=== PATIENT | male | born 1985 | race Caucasian/White ===

== ENCOUNTER 2017-08-17 13:18 | Emergency (ER) | payer OTHER, BC ==
--- NOTE | 2017-08-17 15:19 | EDM.PDOC ---
ED HPI GENERAL MEDICAL PROBLEM - General Chief Complaint: Back Pain or Injury Stated Complaint: BACK PAIN Time Seen by Provider: 08/17/17 13:46 Source of Information: Reports: Patient, RN Notes Reviewed - History of Present Illness INITIAL COMMENTS - FREE TEXT/NARRATIVE: 31-year-old male comes in with mid back pain. He is a member of the local [employer]. 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 That time he's been having discomfort in the mid back where at least one of the probes went through his skin. When no swelling, drainage, erythema or anything of that nature locally. In comes and goes, worse with certain types of bending and motion. He does not recall having any significant back discomfort prior to that incident. He wonders if his current and continued back discomfort is related to the Taser incident. Middle Back Pain Score (Numeric/FACES): 3 - Related Data Allergies Allergy/AdvReac Type Severity Reaction Status Date / Time No Known Allergies Allergy Verified 08/17/17 13:48 Home Meds: Home Meds . [No Known Home Meds] 08/17/17 [History] Past Medical History - Past Health History Medical/Surgical History: Denies Medical/Surgical History Social & Family History - Tobacco Use Smoking Status *Q: Never Smoker - Caffeine Use Caffeine Use: Reports: Coffee, Energy Drinks, Soda - Recreational Drug Use Recreational Drug Use: No ED ROS GENERAL - Review of Systems Review Of Systems: See Below Constitutional: Denies: Fever, Chills HEENT: Reports: No Symptoms Respiratory: Denies: Shortness of Breath Cardiovascular: Denies: Chest Pain GI/Abdominal: Denies: Abdominal Pain, Nausea, Vomiting Musculoskeletal: Reports: Back Pain (Mid back, not constant, worse with certain types of motion and activity such as bending reaching, no radiation of pain down to either lower extremity) Skin: Reports: No Symptoms. Denies: Bruising, Erythema Neurological: Denies: Numbness, Tingling, Difficulty Walking, Weakness, Gait Disturbance ED EXAM, UPPER BACK/NECK PAIN - Physical Exam Exam: See Below General Appearance: Alert, No Apparent Distress Throat/Mouth Exam: Normal Inspection Head Exam: Atraumatic Neck Exam: Non-Tender, Full Range of Motion Cardiovascular/Respiratory: Regular Rate, Rhythm, Normal Breath Sounds Back Exam: Paraspinal Tenderness (Very mild soft tissue tenderness of the mid back, mid thoracic area, no swelling visible, no mass palpable, no skin lesions visible). No: Vertebral Tenderness Extremities: Normal Inspection, Normal Range of Motion, Other (No pain with straight leg raising either leg). No: Leg Pain Neurologic: No Motor/Sensory Deficits Skin Exam: Normal Color, Warm/Dry Course - Vital Signs Last Recorded V/S: Last Vital Signs Temp 97.1 F 08/17/17 13:43 Pulse 78 08/17/17 13:43 Resp 20 08/17/17 13:43 BP 133/70 08/17/17 13:43 Pulse Ox 97 08/17/17 13:43 - Orders/Labs/Meds Orders: Active Orders 24 hr Category Date Time Status Thoracic Spine 2V [CR] Stat Exams 08/17/17 14:23 Taken - Re-Assessments/Exams Free Text/Narrative Re-Assessment/Exam: 08/17/17 15:50 X-rays of the thoracic spine do not show apparent abnormality Departure - Departure Time of Disposition: 15:16 Disposition: Home, Self-Care 01 Condition: Fair Clinical Impression: Back pain Qualifiers: Back pain location: thoracic back pain Chronicity: acute Back pain laterality: midline Qualified Code(s): M54.6 - Pain in thoracic spine - Discharge Information Instructions: Back Pain, Adult Referrals: PCP,None [Primary Care Provider] - Forms: ED Department Discharge Additional Instructions: I do not have Radiologist report at this time but the x-rays of your thoracic spine looked good. Continue to take Advil or ibuprofen up to 600 mg 2-3 times daily when you do have more back discomfort, if there are times that that is not helping the discomfort go away or if you ever start having pain shooting down into either leg, or any numbness or tingling be sure and see your regular or a regular medical provider. Feel free to return to ED at any time if symptoms worsening in any way. - My Orders Last 24 Hours: My Active Orders 08/17/17 14:23 Thoracic Spine 2V [CR] Stat - Assessment/Plan Last 24 Hours: My Active Orders 08/17/17 14:23 Thoracic Spine 2V [CR] Stat
--- NOTE | 2017-08-18 11:55 | CR ---
Thoracic spine: AP, lateral and swimmer's views of the thoracic spine were obtained. Mild scoliosis is seen. Mild disc space narrowing is scattered within the mid and upper thoracic spine. Pedicles are intact. No subluxation or fracture is seen. Impression: 1. Mild scoliosis with mild disc space narrowing seen within the mid and upper thoracic spine. Disc space narrowing most likely on a developmental basis. Diagnostic code #2
== END 2017-08-17 15:25 | disposition home or self-care (01) ==
LOC: JD.ED 13:18
DX: M54.6 Pain in thoracic spine (principal)
CPT/HCPCS: 72070; 72070-26; 99283